=== PATIENT | female | born 1985 | race Caucasian/White ===

== ENCOUNTER → 2016-08-05 | Outpatient (CLI) | payer OTHER ==
--- NOTE | 2016-08-06 08:18 | MM ---
Reason for exam: clinical finding. History: Family history of breast cancer in maternal grandmother. Indicated problem(s): lump or thickening in the left breast. Physical Findings: Nurse did not find any significant physical abnormalities on exam. MG Diagnostic Mammo w CAD MARICRUZ Bilateral CC, MLO, and XCCL view(s) were taken. The breast tissue is extremely dense which could obscure a lesion on mammography. There is no discrete abnormality including area of concern. These results were verbally communicated with the patient and result sheet given to the patient on 08/05/16. ASSESSMENT: Negative, BI-RAD 1 RECOMMENDATION: Routine screening mammogram of both breasts at age 38. Manage patient on a clinical basis.
== END | disposition home or self-care (01) ==
LOC: RADMAMWWP 14:15
PROVIDERS: ATTEND Family Medicine
DX: N63 Unspecified lump in breast (principal); R92.8 Other abnormal and inconclusive findings on diagnostic imaging of breast

== ENCOUNTER 2017-05-13 12:51 | Emergency (ER) | payer OTHER ==
[2017-05-13 13:03] VITALS: RESP 18
[2017-05-13 14:03] LABS: Appearance,Urine Clear (Clear); Bilirubin,Urine Negative (Negative); Blood,Urine Negative (Negative); Color,Urine Light Yellow; Glucose,Urine (UA) Negative (Negative); Ketones,Urine Negative (Negative); Leukocyte Esterase,Urine Negative (Negative); Nitrite,Urine Negative (Negative); Protein,Urine Negative (Negative); Specific Gravity,Urine 1.003 (1.001-1.035); Urobilinogen,Urine <2.0 mg/dL (<2.0)
[2017-05-13 14:03] LABS: Basophils % (A) 0 %; Eosinophils # (A) 0.1 k/uL (0-0.7); Eosinophils % (A) 1 %; HCT 40.2 % (34.0-46.0); HGB 13.5 gm/dL (11.4-16.0); Lymphocytes # (A) 1.6 k/uL (1.0-4.8); Lymphocytes % (A) 25 %; MCH 32.9 pg (25.0-35.0); MCHC 33.6 g/dL (31.0-37.0); MCV 97.8 fL (80.0-100.0); Mean Platelet Volume 6.7; Monocytes # (A) 0.3 k/uL (0-1.0); Monocytes % (A) 5 %; Neutrophils # (A) 4.2 k/uL (1.3-7.7); Neutrophils % (A) 68 %; Platelet Count 308 k/uL (150-450); RBC 4.11 m/uL (3.80-5.40); RDW 12.2 % (11.5-15.5); WBC 6.2 k/uL (3.8-10.6)
[2017-05-13 14:19] LABS: ALT 20 U/L (9-52); AST 19 U/L (14-36); Albumin 4.5 g/dL (3.5-5.0); Alkaline Phosphatase 51 U/L (38-126); Amylase 74 U/L (30-110); Anion Gap 10 mmol/L; Blood Urea Nitrogen 10 mg/dL (7-17); Calcium 10.2 mg/dL (8.4-10.2); Carbon Dioxide 25 mmol/L (22-30); Chloride 106 mmol/L (98-107); Glucose 81 mg/dL (74-99); Lipase 38 U/L (23-300); Potassium 4.4 mmol/L (3.5-5.1); Sodium 141 mmol/L (137-145); Total Bilirubin 0.8 mg/dL (0.2-1.3); Total Protein 7.2 g/dL (6.3-8.2)
[2017-05-13] MEDS ORDERED: IOHEXOL 350 MG/ML 25 ML BOTTLE (ORAL USE) PO PRN (14:49)
[2017-05-13] MEDS ORDERED: RX INFO: IV CONTRAST WAS GIVEN 1 EACH MISC MISCELLANE PRN (14:49)
[2017-05-13] MEDS ORDERED: ONDANSETRON 4 MG/2 ML VIAL IVP STA (14:49)
[2017-05-13] MEDS ORDERED: MORPHINE SULFATE 4 MG/ML SYRINGE IVP STA ×2 (14:49→18:23)
[2017-05-13] MEDS ORDERED: SODIUM CHLORIDE 0.9% 1,000 ML IV ONE (15:05)
[2017-05-13] MEDS ORDERED: SODIUM CHLORIDE 0.9% 1,000 ML IV SCH (15:15)
[2017-05-13 15:28] LABS: INR 1.1 (<1.2); Partial Thromboplastin Time 24.3 sec (22.0-30.0); Prothrombin Time 10.6 sec (9.0-12.0)
--- NOTE | 2017-05-13 16:21 | ED ---
Recheck HPI - General Chief Complaint: Recheck/Abnormal Lab/Rx Stated Complaint: Poss Blood Clot Time Seen by Provider: 05/13/17 14:05 Source: patient, RN notes reviewed, old records reviewed Mode of arrival: ambulatory Limitations: no limitations - History of Present Illness Initial Comments: This patient is 31-year-old female presents emergency department today chief complaint of an abnormal ultrasound done earlier this morning. She reports she' s been having chronic lower abdominal pelvic pain for the past few months. She' s been worked up multiple times by primary care provider and they were unable to determine anything socially sent her for ultrasound today. She states that her pains are getting acutely worse for the past few days. Patient reports that she got a call from her PCP that she had an abnormal ultrasound questionable for a blood clot and sent her in for further evaluation. She reports that she's her great-grandmother had a history of blood clots and from these however denies any other known family history of blood clots. She is a smoker. Does not take any hormones or have any travel history or sedentary use. She denies any leg pain or leg swelling. - Related Data Home Medications Medication Instructions Recorded Confirmed ALPRAZolam [Xanax] 2 mg PO TID 11/19/13 05/13/17 Dextroamphetamine/Amphetamine 20 mg PO BID 11/19/13 05/13/17 [Amphetamine Salts 20 mg Tablet] QUEtiapine FUMARATE [SEROquel XR] 400 mg PO HS@2200 11/19/13 05/13/17 lamoTRIgine [lamoTRIgine] 200 mg PO HS@2200 11/19/13 05/13/17 QUEtiapine [SEROquel] 50 mg PO DAILY@1700 05/13/17 05/13/17 QUEtiapine [SEROquel] 100 mg PO DAILY@1930 05/13/17 05/13/17 Allergies Allergy/AdvReac Type Severity Reaction Status Date / Time grapefruit [Grapefruit] Allergy Anaphylaxis Verified 05/13/17 14:09 Review of Systems ROS Statement: Those systems with pertinent positive or pertinent negative responses have been documented in the HPI. ROS Other: All systems not noted in ROS Statement are negative. Past Medical History Past Medical History: Asthma, Fibromyalgia Additional Past Medical History / Comment(s): ms History of Any Multi-Drug Resistant Organisms: None Reported Past Surgical History: Tubal Ligation, Uterine Ablation Additional Past Surgical History / Comment(s): uterine ablation Past Psychological History: ADD/ADHD, Anxiety, Bipolar, Schizoaffective Disorder , Schizophrenia Smoking Status: Current every day smoker Past Alcohol Use History: None Reported Past Drug Use History: None Reported, Marijuana General Exam - General Exam Comments Initial Comments: This is a 31-year-old female. No acute distress. Limitations: no limitations General appearance: alert, in no apparent distress Head exam: Present: atraumatic, normocephalic, normal inspection Eye exam: Present: normal appearance, PERRL, EOMI. Absent: scleral icterus, conjunctival injection, periorbital swelling ENT exam: Present: normal exam, mucous membranes moist Neck exam: Present: normal inspection. Absent: tenderness, meningismus, lymphadenopathy Respiratory exam: Present: normal lung sounds bilaterally. Absent: respiratory distress, wheezes, rales, rhonchi, stridor Cardiovascular Exam: Present: regular rate, normal rhythm, normal heart sounds. Absent: systolic murmur, diastolic murmur, rubs, gallop, clicks GI/Abdominal exam: Present: soft, tenderness (Minimal epigastric tenderness and bilateral lower quadrant tenderness. No rebound or guarding.), normal bowel sounds. Absent: distended, guarding, rebound, rigid Extremities exam: Present: normal inspection, full ROM, normal capillary refill. Absent: tenderness, pedal edema, joint swelling, calf tenderness Back exam: Present: normal inspection Neurological exam: Present: alert, oriented X3, CN II-XII intact Course Vital Signs 05/13/17 12:58 Temperature 97.4 F L Pulse Rate 91 Respiratory 18 Rate Blood Pressure 105/67 O2 Sat by Pulse 97 Oximetry Medical Decision Making - Medical Decision Making This patient is a 31-year-old female presents emergency department today chief complaint of abnormal ultrasound done earlier today. She's been having chronic abdominal pain for many months. She did help patient ultrasound which showed evidence of a partial clot within the IVC as well as extending into the hepatic vein. Patient reports she's had no history of blood clots. Family history of blood clots, she does not take any estrogen. She is a smoker. I consult to the radiologist website optimization strategist, he recommended CT abdomen and pelvis with contrast and oral contrast with delayed imaging to notify there is any abnormalities within the venous system. At this time patient's CT abdomen and pelvis was reviewed and shows no evidence of any acute process. However they are unable to totally visualize the IVC. He did report that ultrasound would be the best study for abnormal vascularity. Patient's lab work was all reviewed and within normal limits. I discussed this with Dr. Renee. He then discussed this with our on- call vascular surgeon Dr. Frazier. Dr. Frazier recommends transfer to [facility] for further evaluation. Patient was given 2 doses of 4 mg of morphine for her pain. However she does not appear to be acutely tender on exam and has been resting comfortably otherwise. She has no signs of DVT. Patient informed of these results and informed of the request to transfer her. She is very anxious about the outcome of this, I did discuss with her that there is a possibility that she gets reevaluated in the emergency department and then transferred home. - Lab Data Result diagrams: 05/13/17 13:45 05/13/17 13:45 Lab Results 05/13/17 05/13/17 05/13/17 Range/Units 13:05 13:05 13:45 WBC (3.8-10.6) k/uL RBC (3.80-5.40) m/uL Hgb (11.4-16.0) gm/dL Hct (34.0-46.0) % MCV (80.0-100.0) fL MCH (25.0-35.0) pg MCHC (31.0-37.0) g/dL RDW (11.5-15.5) % Plt Count (150-450) k/uL Neutrophils % % Lymphocytes % % Monocytes % % Eosinophils % % Basophils % % Neutrophils # (1.3-7.7) k/uL Lymphocytes # (1.0-4.8) k/uL Monocytes # (0-1.0) k/uL Eosinophils # (0-0.7) k/uL Basophils # (0-0.2) k/uL PT (9.0-12.0) sec INR (<1.2) APTT (22.0-30.0) sec Sodium 141 (137-145) mmol/L Potassium 4.4 (3.5-5.1) mmol/L Chloride 106 (98-107) mmol/L Carbon Dioxide 25 (22-30) mmol/L Anion Gap 10 mmol/L BUN 10 (7-17) mg/dL Creatinine 0.68 (0.52-1.04) mg/dL Est GFR (CKD-EPI)AfAm >90 (>60 ml/min/1.73 sqM) Est GFR (CKD-EPI)NonAf >90 (>60 ml/min/1.73 sqM) Glucose 81 (74-99) mg/dL Calcium 10.2 (8.4-10.2) mg/dL Total Bilirubin 0.8 (0.2-1.3) mg/dL AST 19 (14-36) U/L ALT 20 (9-52) U/L Alkaline Phosphatase 51 (38-126) U/L Total Protein 7.2 (6.3-8.2) g/dL Albumin 4.5 (3.5-5.0) g/dL Amylase 74 (30-110) U/L Lipase 38 (23-300) U/L Urine Color Light Yellow Urine Appearance Clear (Clear) Urine pH 6.0 (5.0-8.0) Ur Specific [place] 1.003 (1.001-1.035) Urine Protein Negative (Negative) Urine Glucose (UA) Negative (Negative) Urine Ketones Negative (Negative) Urine Blood Negative (Negative) Urine Nitrite Negative (Negative) Urine Bilirubin Negative (Negative) Urine Urobilinogen <2.0 (<2.0) mg/dL Ur Leukocyte Esterase Negative (Negative) Urine HCG, Qual Not Detected (Not Detectd) 05/13/17 05/13/17 Range/Units 13:45 15:08 WBC 6.2 (3.8-10.6) k/uL RBC 4.11 (3.80-5.40) m/uL Hgb 13.5 (11.4-16.0) gm/dL Hct 40.2 (34.0-46.0) % MCV 97.8 (80.0-100.0) fL MCH 32.9 (25.0-35.0) pg MCHC 33.6 (31.0-37.0) g/dL RDW 12.2 (11.5-15.5) % Plt Count 308 (150-450) k/uL Neutrophils % 68 % Lymphocytes % 25 % Monocytes % 5 % Eosinophils % 1 % Basophils % 0 % Neutrophils # 4.2 (1.3-7.7) k/uL Lymphocytes # 1.6 (1.0-4.8) k/uL Monocytes # 0.3 (0-1.0) k/uL Eosinophils # 0.1 (0-0.7) k/uL Basophils # 0.0 (0-0.2) k/uL PT 10.6 (9.0-12.0) sec INR 1.1 (<1.2) APTT 24.3 (22.0-30.0) sec Sodium (137-145) mmol/L Potassium (3.5-5.1) mmol/L Chloride (98-107) mmol/L Carbon Dioxide (22-30) mmol/L Anion Gap mmol/L BUN (7-17) mg/dL Creatinine (0.52-1.04) mg/dL Est GFR (CKD-EPI)AfAm (>60 ml/min/1.73 sqM) Est GFR (CKD-EPI)NonAf (>60 ml/min/1.73 sqM) Glucose (74-99) mg/dL Calcium (8.4-10.2) mg/dL Total Bilirubin (0.2-1.3) mg/dL AST (14-36) U/L ALT (9-52) U/L Alkaline Phosphatase (38-126) U/L Total Protein (6.3-8.2) g/dL Albumin (3.5-5.0) g/dL Amylase (30-110) U/L Lipase (23-300) U/L Urine Color Urine Appearance (Clear) Urine pH (5.0-8.0) Ur Specific [place] (1.001-1.035) Urine Protein (Negative) Urine Glucose (UA) (Negative) Urine Ketones (Negative) Urine Blood (Negative) Urine Nitrite (Negative) Urine Bilirubin (Negative) Urine Urobilinogen (<2.0) mg/dL Ur Leukocyte Esterase (Negative) Urine HCG, Qual (Not Detectd) - Radiology Data Radiology results: report reviewed Abdominal ultrasound shows partial 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 Ultrasound of the pelvis shows slight heterogenicity of the myometrium without discrete lesion to suggest leiomyoma. Adenomyosis is a possibility in a fair further clinical concern MR pelvis could be performed. Normal computed tomography scan of the abdomen and pelvis. Normal appendix. No evidence of portal venous thrombosis. Normal liver. Disposition Clinical Impression: Inferior vena cava occlusion, Chronic abdominal pain Disposition: DC/TRNS INTERMEDIATE CARE FAC Condition: Stable Referrals: Zaynab Purcell MD [Primary Care Provider] - 1-2 days Time of Disposition: 19:08 - Out of Hospital Transfer - Req. Specs Out of Hospital Transfer - Requested Specifics: Other Emergency Center ([facility])
--- NOTE | 2017-05-13 17:51 | CT ---
EXAMINATION TYPE: CT abdomen pelvis w con DATE OF EXAM: 05/13/2017 COMPARISON: NONE HISTORY: abdominal pain, possible occlusion of IVC and portal veins shown on US CT DLP: 1094 mGycm Automated exposure control for dose reduction was used. TECHNIQUE: Helical acquisition of images was performed from the lung bases through the pelvis. CONTRAST: Performed with Oral Contrast and with IV Contrast, patient injected with 100 mL of Omnipaque 300. FINDINGS: Lung bases are clear of infiltrate. There is no pleural effusion. Liver spleen pancreas and gallbladd er appear normal. Bile ducts are not dilated. There is no adrenal mass. Kidneys show satisfactory contrast opacification. There is no hydronephrosis. Ureters are not dilated . I see no intestinal wall thickening. There are no dilated loops. Bladder distends smoothly. There is no sign of a pelvic mass. Liver is normal in size and contour without a focal defect. There is no sign of free air. There is no ascites. I see no intestinal wall thickening. There are no dilated loops. Uterus is anteverted. I see no bony destructive process. Appendix appears normal. There is normal contrast opacification of the splenic vein and the superior mesenteric vein. Portal v ein has normal contrast opacification. There is no evidence of a filling defect. IMPRESSION: NORMAL CT SCAN OF THE ABDOMEN AND PELVIS. NORMAL APPENDIX. NO EVIDENCE OF PORTAL VENOUS THROMBOSIS. N ORMAL LIVER.
[2017-05-13 20:03] VITALS: BP 114/84; PULSE 74; TEMP 97.1
== END 2017-05-13 21:01 ==
LOC: EC 12:51
DX: I82.220 Acute embolism and thrombosis of inferior vena cava (principal); G89.29 Other chronic pain; R10.2 Pelvic and perineal pain; F90.9 Attention-deficit hyperactivity disorder, unspecified type; F31.9 Bipolar disorder, unspecified; F41.9 Anxiety disorder, unspecified; F20.9 Schizophrenia, unspecified; F17.200 Nicotine dependence, unspecified, uncomplicated; Z79.899 Other long term (current) drug therapy; Z91.018 Allergy to other foods
CPT/HCPCS: 99285; 96374; 96375; 96376; 96361; 36415; 80053; 82150; 83690; 85025; 85610; 85730; 81003; 81025; 74177; J2270; J2405; Q9967

== ENCOUNTER → 2017-05-13 | Outpatient (CLI) | payer OTHER ==
--- NOTE | 2017-05-13 10:57 | US ---
EXAMINATION TYPE: US pelvic complete DATE OF EXAM: 05/13/2017 COMPARISON: NONE CLINICAL HISTORY: R10.13 Epigastric pain, R10.2 pelvic pain. Right pelvic pain; vaginal bleeding with intercourse; endometrial ablation 2009; TECHNIQUE: Transabdominal (TA). Transabdominal sonographic images of the pelvis were acquired. Date of LMP: NA with endometrial ablation EXAM MEASUREMENTS: Uterus: 7.8 x 5.1 x 3.8 cm Endometrial Stripe: Endometrium is ill-defined although does not appear thickened. This measures appr oximately 4 mm. Right Ovary: 2.5x 2.2 x 1.7 cm Left Ovary: 3.9 x 2.9 x 2.1 cm 1. Uterus: Anteverted; heterogeneous appearance; small Nabothian cyst in CX = 0.4 x 0.5 x 0.3cm 2. Endometrium: endo not seen 3. Right Ovary: small follicle was noted 4. Left Ovary: multiple small follicles Spectral, color and waveform doppler imaging shows good arterial and venous flow within the ovaries ; there is no evidence for ovarian torsion. 5. Bilateral Adnexa: wnl 6. Posterior cul-de-sac: wnl IMPRESSION: Slight heterogeneity of the myometrium without discrete lesion to suggest leiomyoma. Abdifatah omyosis is a possibility and if there is further clinical concern MR pelvis could be performed.
--- NOTE | 2017-05-13 11:23 | US ---
EXAMINATION TYPE: US abdomen complete DATE OF EXAM: 05/13/2017 COMPARISON: NONE CLINICAL HISTORY: R10.13 Epigastric pain, R10.2 pelvic pain; fibromyalgia; vomiting in morning EXAM MEASUREMENTS: Liver Length: 15.1 cm Gallbladder Wall: 0.1 cm CBD: 0.3 cm Spleen: 7.8 cm Right Kidney: 9.9 x 4.3 x 3.8 cm Left Kidney: 9.4 x 4.8 x 5.0 cm Pancreas: wnl Liver: parenchyma appears wnl; mobile internal echoes are noted within main portal vein and right an d left portal vein; color flow patency is documented around internal echoes. This represents partial occlusion. Gallbladder: wnl Evidence for sonographic Alfaro's sign: No CBD: wnl Spleen: wnl Right Kidney: wnl Left Kidney: prominent renal pelvis with no gross evidence of hydronephrosis. Prominence is likely r elated to e phase of urinary excretion as the minor and major calyces are not blunted. Upper IVC: internal mobile echoes are noted within upper IVC (rouleaux effect) with color flow paten cy documented. This represents partial occlusion. Abd Aorta: wnl The findings were discussed with the ordering physician office directly by the parking inspector directly a fter the examination. Findings were also discussed directly with the ordering physician by myself Dr. Kenyon at 11:20 AM on 05/13/2017. 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
== END | disposition home or self-care (01) ==
LOC: RADUSWWP 09:11
PROVIDERS: ATTEND Family Medicine
DX: I82.220 Acute embolism and thrombosis of inferior vena cava (principal); I81 Portal vein thrombosis; R93.8 Abnormal findings on diagnostic imaging of other specified body structures; N94.10 Unspecified dyspareunia; R10.31 Right lower quadrant pain
CPT/HCPCS: 76700; 76856

== ENCOUNTER → 2017-10-29 | Outpatient (CLI) | payer OTHER ==
--- NOTE | 2017-10-29 14:09 | MR ---
MR pelvis with and without contrast HISTORY: Abnormal pelvic ultrasound, pain, endometriosis Multiplanar multisequence and postcontrast images obtained through the pelvis following 5 cc Gadavist IV The myometrium shows multi locular cystic type appearance, there is poor definition of the junctional zone. Small foci of high signal are present on T1-weighted sequences compatible with small focal hem orrhages. There is no evident leiomyoma. There is a small amount of free fluid within the cul-de-sac. Ovaries show associated follicles. Urinary bladder is nondistended. Bone marrow signal is maintained. No evident adenopathy. IMPRESSION: Findings compatible with adenomyosis diffuse form.
== END | disposition home or self-care (01) ==
LOC: RADMRIMAIN 10:07
PROVIDERS: ATTEND Family Medicine
DX: N80.0 Endometriosis of uterus (principal)
CPT/HCPCS: 72197; A9581